=== PATIENT | female | born 1990 | race Caucasian/White ===

== ENCOUNTER 2024-07-14 10:27 | Emergency (ER) | payer OTHER ==
[~2024-07-14] VITALS: Ht 157.5 cm; Wt 47.2 kg
[2024-07-14 10:59] VITALS: TEMP 98.3
[2024-07-14] MEDS ORDERED: MORPHINE SULFATE INJ 4 MG/ML DISP.SYRIN ONE ×2 (11:21→14:21)
[2024-07-14] MEDS ORDERED: ONDANSETRON HCL/PF 4 MG/2 ML VIAL ONE ×2 (11:21→14:21)
[2024-07-14 11:30] LABS: BASOPHILS % (AUTO) 0.1 % (0.0-2.0); EOSINOPHILS % (AUTO) 0.1 % (0.0-6.0); HEMATOCRIT 41 % (33-45); HEMOGLOBIN 13.9 g/dL (11.5-14.8); LYMPHOCYTES # (AUTO) 0.8 K/uL (0.8-4.8); LYMPHOCYTES % (AUTO) 9.6 % (20.0-44.0); MEAN CORPUSCULAR HEMOGLOBIN 30 PG (26.0-33.0); MEAN CORPUSCULAR HGB CONC 34 g/dl (31.0-36.0); MEAN CORPUSCULAR VOLUME 89 fL (82-100); MONOCYTES # (AUTO) 0.6 K/uL (0.1-1.30); MONOCYTES % (AUTO) 6.9 % (2.0-12.0); NEUTROPHILS # (AUTO) 6.8 K/uL (1.8-8.9); NEUTROPHILS % (AUTO) 83.3 % (43.0-81.0); PLATELET COUNT (AUTO) 250 K/uL (150-450); RED BLOOD CELL COUNT(AUTO) 4.63 MIL/uL (4.0-5.2); RED CELL DISTRIBUTION WIDTH 12.2 % (11.5-15.0); WHITE BLOOD COUNT (AUTO) 8.2 K/uL (4.3-11.0)
[2024-07-14] MEDS: IV NS 0.9% 1,000 ML BAG IV ONE (11:30)
[2024-07-14] MEDS: ONDANSETRON HCL/PF 4 MG/2 ML VIAL IVP ONE (11:31)
[2024-07-14] MEDS: MORPHINE SULFATE INJ 2 MG/ML DISP.SYRIN IV ONE ×2 (11:33→14:26)
[2024-07-14 11:35] LABS: PREGNANCY TEST URINE QUAL NEGATIVE (NEGATIVE)
[2024-07-14 11:36] LABS: CALCIUM, SERUM 9.3 mg/dL (8.5-10.1); POTASSIUM 3.5 mmol/L (3.5-5.1)
[2024-07-14 11:41] LABS: APPEARANCE,URINE TURBID (CLEAR); COLOR,URINE RED (YELLOW)
[2024-07-14 11:42] LABS: ALBUMIN 4.3 g/dL (3.4-5.0); BILIRUBIN,DIRECT 0.2 mg/dL (0.0-0.2); BILIRUBIN,TOTAL 1.1 mg/dL (0.2-1.0); TOTAL PROTEIN, SERUM 7.3 g/dL (6.4-8.2)
[2024-07-14 11:42] LABS: RBC,URINE TOO NUMEROUS TO COUN /HPF (0-2); WBC,URINE 0-2 /HPF (0-3)
[2024-07-14 11:43] LABS: BACTERIA,URINE Few /HPF (None Seen)
[2024-07-14] MEDS ORDERED: TAMSULOSIN 0.4 MG CAP.SR.24H ONE (13:52)
[2024-07-14] MEDS ORDERED: KETOROLAC TROMETHAMINE 15 MG/ML VIAL ONE (13:52)
[2024-07-14] MEDS: KETOROLAC TROMETHAMINE 15 MG/ML VIAL IV ONE (13:57)
[2024-07-14] MEDS: TAMSULOSIN 0.4 MG CAP.SR.24H PO ONE (13:58)
[2024-07-14] MEDS: ONDANSETRON HCL/PF - ER 4 MG/2 ML VIAL IV ONE (14:25)
[2024-07-14] MEDS ORDERED: ONDA4TAB11 PO (14:35)
[2024-07-14] MEDS ORDERED: TRAM50TA2 PO (14:35)
[2024-07-14] MEDS ORDERED: TAMS-12 PO (14:35)
[2024-07-14] MEDS ORDERED: CEFP200T14 PO (14:35)
[2024-07-14] MEDS ORDERED: IBUP-1957 PO (14:35)
[2024-07-14 15:05] VITALS: BP 112/75; O2SAT 97
== END 2024-07-14 15:06 | disposition home or self-care (01) ==
LOC: ER 10:38
DX: N13.2 Hydronephrosis with renal and ureteral calculous obstruction (principal)
CPT/HCPCS: 99285; 74176; 96374; 96375; 96361; 96376; 85025; 80048; 83690; 80076; 84703; 81001; 36415; J1885; J2270 ×2; J2405 ×3; J7030